=== PATIENT | male | born 1960 | race African-American/Black ===

== ENCOUNTER 2018-11-29 12:23 | Emergency (ER) | payer OTHER ==
[2018-11-29] MEDS: ALBUTEROL 0.083% (NEB) 2.5 MG/3 ML AMP HHN ×2 (13:07→15:12)
[2018-11-29] MEDS: IPRATROPIUM (NEB) 0.5 MG/2.5 ML AMP HHN ×2 (13:07→15:12)
[2018-11-29] MEDS: DEXAMETHASONE 10 MG/ML 1 ML INJ IM (15:49)
== END 2018-11-29 17:03 | disposition home or self-care (01) ==
LOC: FTE 12:23
DX: R05 Cough (principal); J45.901 Unspecified asthma with (acute) exacerbation; J44.9 Chronic obstructive pulmonary disease, unspecified; F17.210 Nicotine dependence, cigarettes, uncomplicated
CPT/HCPCS: 71045; 94664; 96372; 99284-25